=== PATIENT | female | born 1970 | race Caucasian/White ===

== ENCOUNTER → 2016-12-11 | Outpatient (CLI) | payer OTHER ==
--- NOTE | 2016-12-12 07:06 | US ---
EXAMINATION TYPE: US carotid duplex BILAT DATE OF EXAM: 12/11/2016 COMPARISON: NONE CLINICAL HISTORY: G43.009 Migraine w/o aura, patient states left sided numbness, aphasia. EXAM MEASUREMENTS: RIGHT: Peak Systolic Velocity (PSV) cm/sec ----- Right CCA: 91.4 ----- Right ICA: 93.2 ----- Right ECA: 97.3 ICA/CCA ratio: 1.0 RIGHT: End Diastole cm/sec ----- Right CCA: 28.9 ----- Right ICA: 47.9 ----- Right ECA: 15.3 LEFT: Peak Systolic Velocity (PSV) cm/sec ----- Left CCA: 94.7 ----- Left ICA: 96.0 ----- Left ECA: 89.4 ICA/CCA ratio: 1.0 LEFT: End Diastole cm/sec ----- Left CCA: 35.2 ----- Left ICA: 24.6 ----- Left ECA: 18.0 VERTEBRALS (direction of flow): Right Vertebral: Antegrade Left Vertebral: Antegrade No evident plaque, No significant velocity elevations IMPRESSION: No evidence for hemodynamically significant stenosis within either carotid system. .
== END | disposition home or self-care (01) ==
LOC: RADUSWWP 15:36
PROVIDERS: ATTEND Psychiatry & Neurology Neurology
DX: G43.009 Migraine without aura, not intractable, without status migrainosus (principal)
CPT/HCPCS: 93880

== ENCOUNTER → 2016-12-19 | Outpatient (CLI) | payer OTHER ==
--- NOTE | 2016-12-19 21:06 | MR ---
EXAMINATION TYPE: MR angio head wo con DATE OF EXAM: 12/19/2016 COMPARISON: MRA/MRI brain February 07, 2015. HISTORY: Neck pain, pressure RT side of face. Migraine headaches per order. TECHNIQUE: Time of flight images focusing on the [place] were performed without contrast.. 2-D and 3-D postprocessing imaging is performed. FINDINGS: There is redemonstration of dominant left vertebral artery. Vertebral arteries are patent t o basilar junction. There is slightly tortuous course of the right P1 segment redemonstrated with pat ent right-sided posterior communicating artery identified. There is hypoplastic left-sided posterior communicating artery. No significant stenosis or aneurysmal change is seen. Images of the anterior circulation show no significant focal stenosis or aneurysmal change. There is small caliber but patent anterior communicating arteries seen best on image 59 series 301. IMPRESSION: No significant focal stenosis or aneurysmal change at level of the [place]. No s ignificant change from prior.
--- NOTE | 2016-12-19 21:10 | MR ---
MRI CERVICAL SPINE: CLINICAL HISTORY: Migraine headaches and extremity paresthesias per order. Headaches with left-sided facial and arm numbness per patient. TECHNIQUE: Multiplanar, multisequence imaging of the cervical spine is performed without IV contrast. COMPARISON: Cervical spine x-ray May 31, 2015 FINDINGS: Sagittal images of the cervical spine show the craniocervical junction to appear within nor mal limits. The cervical and upper thoracic spinal cord is normal in course, caliber, and signal. V ertebral alignment is slightly straightened. The vertebral body and intravertebral disk heights are normal. No large posterior disc herniations are seen on sagittal images. The bone marrow signal inte nsity is within normal limits. No significant spurring is present. Axial images show the C2-C3 and C3-C4 levels to appear within normal limits. Axial images at C4-C5 level show tiny central disc protrusion minimally effacing anterior thecal sac on axial image 29, bilateral neural foramina are patent. Axial images at C5-C6 level show broad-based left paracentral disc protrusion mildly effacing anterio r thecal sac and axial image 22, bilateral neural foramina are patent. Axial images at C6-C7 and C7-T1 levels are felt within normal limits. There is 4 mm T2 hyperintense probable cystic nodule posterior right thyroid lobe on axial image 10. IMPRESSION: Slight straightening of cervical spine with mild degenerative changes midcervical spine s een as detailed above. No significant finding is seen to account for patient's left-sided radiculopat hy type symptoms however.
== END ==
LOC: RADMRIMAIN 17:10
PROVIDERS: ATTEND Psychiatry & Neurology Neurology
DX: G43.009 Migraine without aura, not intractable, without status migrainosus (principal); M47.812 Spondylosis without myelopathy or radiculopathy, cervical region
CPT/HCPCS: 70544; 72141

== ENCOUNTER 2019-05-07 09:15 | Inpatient (IN) | payer OTHER ==
[2019-05-07 11:00] LABS: Basophils % (A) 1 %; Eosinophils % (A) 1 %; HCT 46.6 % (34.0-46.0); HGB 15.4 gm/dL (11.4-16.0); Lymphocytes # (A) 1.5 k/uL (1.0-4.8); Lymphocytes % (A) 33 %; MCHC 33.1 g/dL (31.0-37.0); MCV 90.5 fL (80.0-100.0); Mean Platelet Volume 8.5; Monocytes # (A) 0.3 k/uL (0-1.0); Monocytes % (A) 6 %; Neutrophils # (A) 2.7 k/uL (1.3-7.7); Neutrophils % (A) 58 %; Platelet Count 151 k/uL (150-450); RBC 5.15 m/uL (3.80-5.40); RDW 13.4 % (11.5-15.5); WBC 4.6 k/uL (3.8-10.6)
[2019-05-07 11:25] LABS: Albumin 4.1 g/dL (3.5-5.0); Calcium 8.3 mg/dL (8.4-10.2); Potassium 3.7 mmol/L (3.5-5.1); Total Bilirubin 0.9 mg/dL (0.2-1.3); Total Protein 7.4 g/dL (6.3-8.2)
[2019-05-07] MEDS: IPRATROPIUM-ALBUTEROL 3 ML NEB INHALATION SCH ×3 (13:11→21:14)
[2019-05-07] MEDS: SODIUM CHLORIDE 0.9% 1,000 ML IV SCH ×2 (14:22→20:15)
[2019-05-07] MEDS: ONDANSETRON 4 MG/2 ML VIAL IVP PRN (14:27)
[2019-05-07] MEDS: methylPREDNISolone SOD SUCCI 125 MG/2 ML VIAL IV SCH (14:32)
--- NOTE | 2019-05-07 19:55 | XR ---
EXAMINATION: XR chest 2V DATE AND TIME: 05/07/2019 5:38 PM CLINICAL INDICATION: PHH; asthma TECHNIQUE: Departmental protocol COMPARISON: 10/24/2015 FINDINGS: There is partial opacification of the posterior right lower lobe, suggesting developing bronchopneumo mik. Otherwise, the lungs are well-expanded and clear. The pleural spaces are negative. The cardiac silhouette is not enlarged. The remainder of the mediastinal silhouette is unremarkable. The skeletal structures and soft tissues are negative for acute findings. IMPRESSION: Suspect developing right lower lobe bronchopneumonia; would suggest 6-9 week follow-up PA and lateral chest regressed to prove resolution.
[2019-05-08] MEDS: IPRATROPIUM-ALBUTEROL 3 ML NEB INHALATION SCH ×4 (07:25→21:07)
[2019-05-08] MEDS: methylPREDNISolone SOD SUCCI 125 MG/2 ML VIAL IV SCH ×2 (08:35)
[2019-05-08] MEDS: TROKENDI XR PO SCH (08:40)
[2019-05-08] MEDS ORDERED: TOPIRAMATE 100 MG TAB PO SCH (09:00)
[2019-05-08] MEDS ORDERED: FAMOTIDINE 20 MG/2 ML VIAL IV SCH (09:00)
--- NOTE | 2019-05-08 09:00 | P.HPIM ---
History of Present Illness On-call hospitalist covering for Dr. Song on Saturday and over the weekend This is a pleasant 48 years old female with past medical history of migraine, alert, and neck pain with cervical radiculopathy. Patient presents because of respiratory symptoms. She went to [facility] emergency room at [facility] and they diagnosed her with pneumonia and they discharge on oral antibiotics and ask her to come back if she got worse, next day she went again to the emergency room with AV computed tomography scan of the chest and they told her she does not have pneumonia and they stopped her antibiotics. However she gradually got worse to the degree that she called her PCP Dr. Snog we'll admitted her to [facility]. Patient is complaining of some dyspnea and cough with no phlegm. No chest pain. She feels generally weak. She has some nausea and vomiting, last time she vomited about 2 days ago, yesterday she had loose bowel movement. However she denies abdominal pain, no headache, no weakness or abnormal sens ation in the extremities also patient has been having amenorrhea for all year and just last that she started having vaginal bleeding again Vitas looks stable, blood pressure 106/70, pulse 88/58 on admission. Labs showing unremarkable CBC, BMP, liver enzymes are mildly elevated. AST is 83 and ALT 82. Bilirubin is normal. Chest x-ray showing right lower lobe pneumonia. Midline has been ordered by Dr. Song and she was started on Rocephin and Zithromax as well as Solu-Medrol 60 mg, also she was started on normal sinus 75 mL/h Review of Systems CONSTITUTIONAL: No fever, no malaise, no fatigue. HEENT: No recent visual problems or hearing problems. Denied any sore throat. CARDIOVASCULAR: No orthopnea, PND, no palpitations, no syncope. PULMONARY: no hemoptysis. GASTROINTESTINAL: No diarrhea, no nausea, no vomiting, no abdominal pain. Normoactive bowel sounds. NEUROLOGICAL: No headaches, no weakness, no numbness. HEMATOLOGICAL: Denies any bleeding or petechiae. GENITOURINARY: Denies any burning micturition, frequency, or urgency. MUSCULOSKELETAL/RHEUMATOLOGICAL: Denies any joint pain, swelling, or any muscle pain. ENDOCRINE: Denies any polyuria or polydipsia. Past Medical History Past Medical History: No Reported History History of Any Multi-Drug Resistant Organisms: None Reported Past Surgical History: No Surgical Hx Reported Past Anesthesia/Blood Transfusion Reactions: No Reported Reaction Past Psychological History: ADD/ADHD Smoking Status: Never smoker Past Alcohol Use History: Occasional Past Drug Use History: None Reported - Past Family History Mother Family Medical History: No Reported History Father Family Medical History: Coronary Artery Disease (CAD), Diabetes Mellitus Additional Family Medical History / Comment(s): colorectal cancer Medications and Allergies Home Medications Medication Instructions Recorded Confirmed Type Topiramate [Trokendi Xr] 100 mg PO DAILY 05/07/19 05/07/19 History Allergies Allergy/AdvReac Type Severity Reaction Status Date / Time shellfish derived [Shellfish] Allergy Anaphylaxis Verified 10/24/15 10:19 Physical Exam Vitals: Vital Signs Temp Pulse Pulse Resp BP Pulse Ox 05/08/19 07:40 68 05/08/19 05:13 97.9 F 53 L 18 106/70 92 L 05/07/19 21:25 65 16 05/07/19 21:14 64 16 05/07/19 20:14 98.1 F 79 18 99/63 94 L 05/07/19 17:09 84 05/07/19 16:53 84 05/07/19 13:29 87 05/07/19 13:14 84 05/07/19 12:50 98.7 F 70 15 88/58 96 05/07/19 10:14 98.6 F 78 15 123/83 92 L Intake and Output 05/07/19 05/08/19 05/08/19 22:59 06:59 14:59 Intake Total 540 100 Balance 540 100 Intake: Oral 540 100 Other: Voiding Method Toilet # Voids 1 2 -GENERAL: The patient is alert and oriented x3, not in any acute distress. Generally weak and malaise HEENT: Pupils are round and equally reacting to light. EOMI. No scleral icterus. No conjunctival pallor. Normocephalic, atraumatic. No pharyngeal erythema. No thyromegaly. CARDIOVASCULAR: S1 and S2 present. No murmurs, rubs, or gallops. PULMONARY: Chest is clear to auscultation, no wheezing or crackles. ABDOMEN: Soft, nontender, nondistended, normoactive bowel sounds. No palpable organomegaly. MUSCULOSKELETAL: No joint swelling or deformity. EXTREMITIES: No cyanosis, clubbing, or pedal edema. NEUROLOGICAL: Gross neurological examination did not reveal any focal deficits. SKIN: No rashes. No petechiae Results CBC & Chem 7: 05/07/19 10:32 05/07/19 10:32 Labs: Abnormal Lab Results - Last 24 Hours (Table) 05/07/19 05/07/19 Range/Units 10:32 10:32 Hct 46.6 H (34.0-46.0) % Carbon Dioxide 21 L (22-30) mmol/L Calcium 8.3 L (8.4-10.2) mg/dL AST 83 H (14-36) U/L ALT 82 H (4-34) U/L Thrombosis Risk Factor Assmnt - Choose All That Apply Each Factor Represents 1 point: Age 41-60 years Thrombosis Risk Factor Assessment Total Risk Factor Score: 1 Thrombosis Risk Factor Assessment Level: Low Risk Assessment and Plan Assessment: Right lower lobe pneumonia Possible gastroenteritis, Mostly reactive to pneumonia Vaginal bleeding of one-day duration after 1 year of vitamin Ti[place] Migraine History of vertigo History of neck pain and radiculopathy Plan: This is a pleasant 48 years old female who presents with pneumonia, and vaginal bleeding. Continue with antibiotics. Hold steroids as patient is not a smoker and has no history of COPD and there is no wheezing on lung exam. Follow-up sputum culture, blood culture. Also check a test and ask for [facility] consult Labs and medication were reviewed.. Continue same treatment. Continue with symptomatic treatment. Resume home medication. Monitor lytes and vitals. DVT and GI prophylaxis. Further recommendations of the clinical course of the patient DVT prophylaxis: Subcutaneous heparin GI Prophylaxis: Pepcid Prognosis is guarded
[2019-05-08 09:28] LABS: Basophils % (A) 1 %; Eosinophils % (A) 1 %; HCT 44.5 % (34.0-46.0); HGB 15.2 gm/dL (11.4-16.0); Lymphocytes # (A) 0.9 k/uL (1.0-4.8); Lymphocytes % (A) 26 %; MCH 31.1 pg (25.0-35.0); MCV 91.5 fL (80.0-100.0); Mean Platelet Volume 8.3; Monocytes # (A) 0.1 k/uL (0-1.0); Monocytes % (A) 4 %; Neutrophils # (A) 2.3 k/uL (1.3-7.7); Neutrophils % (A) 66 %; Platelet Count 160 k/uL (150-450); RBC 4.87 m/uL (3.80-5.40); RDW 13.3 % (11.5-15.5); WBC 3.4 k/uL (3.8-10.6)
[2019-05-08] MEDS: AZITHROMYCIN 500 MG in SODIUM CHLORIDE 0.9% 250 ML IVPB SCH ×2 (09:47→11:34)
[2019-05-08] MEDS: HEPARIN SODIUM,PORCINE 5,000 UNIT/ML 1 ML VIAL SQ SCH ×2 (09:47→20:58)
[2019-05-08] MEDS: AZITHROMYCIN 500 MG TAB PO SCH (11:33)
[2019-05-08] MEDS: SODIUM CHLORIDE 0.9% 1,000 ML IV SCH (14:24)
[2019-05-08] MEDS: ONDANSETRON 4 MG/2 ML VIAL IVP PRN (16:39)
--- NOTE | 2019-05-08 17:59 | P.OBCN ---
History of Present Illness Consult date: 05/08/19 Reason for consult: other (Vaginal bleeding) Chief complaint: Vaginal bleeding History of present illness: This is a 48-year-old 2 para 2001 woman who presented with cough, congestion, nausea, abdominal pain and diarrhea. She was admitted for treatment of upper respiratory tract infection possible asthma exacerbation. She also noted that she started her period. Her menses have been irregular over the last 2-3 years and her last normal period was approximately 10-12 months ago. She denies vasomotor symptoms but does have some cyclic breast tenderness and cramping consistent with PMS. Her gynecologic history is unremarkable however she does admit to not having her routine B[employer] exam for approximately 5-10 years. She had a history of abnormal Pap smears as a young woman but these were normal after cryotherapy in the distant past. She denies hematuria, vaginal discharge, pelvic pain, dyspareunia, vulvar or vaginal lesions. Her bleeding is scant and only when she wipes going to the bathroom. Review of Systems Constitutional: Reports chills, Reports fatigue, Reports fever Breasts: absent: masses, nipple discharge, pain Cardiovascular: Reports dyspnea on exertion, Reports shortness of breath, Denies chest pain, Denies irregular heart beat Respiratory: Reports congestion, Reports cough Gastrointestinal: Reports abdominal pain, Reports diarrhea, Reports nausea, Denies BRBPR, Denies change in bowel habits, Denies melena, Denies vomiting Genitourinary: Reports stress incontinence, Denies dyspareunia, Denies dysuria, Denies flank pain, Denies hematuria Menstruation: Reports as per HPI, Reports currently menstrual, Reports menses variable Musculoskeletal: Reports low back pain Integumentary: Denies rash Neurological: Denies headaches Psychiatric: Denies anxiety, Denies depression Hematologic/Lymphatic: Denies easy bleeding, Denies easy bruising Past Medical History Past Medical History: No Reported History Additional Past Medical History / Comment(s): 2 History of Any Multi-Drug Resistant Organisms: None Reported Past Surgical History: No Surgical Hx Reported Past Anesthesia/Blood Transfusion Reactions: No Reported Reaction Past Psychological History: ADD/ADHD Smoking Status: Never smoker Past Alcohol Use History: Occasional Past Drug Use History: None Reported - Past Family History Mother Family Medical History: No Reported History Father Family Medical History: Coronary Artery Disease (CAD), Diabetes Mellitus Additional Family Medical History / Comment(s): colorectal cancer Medications and Allergies Home Medications Medication Instructions Recorded Confirmed Type Topiramate [Trokendi Xr] 100 mg PO DAILY 05/07/19 05/07/19 History Allergies Allergy/AdvReac Type Severity Reaction Status Date / Time shellfish derived [Shellfish] Allergy Anaphylaxis Verified 10/24/15 10:19 Exam Vital Signs Temp Pulse Pulse Resp BP Pulse Ox 05/08/19 16:54 80 05/08/19 16:42 70 05/08/19 13:06 98.5 F 65 16 105/69 96 05/08/19 11:53 88 05/08/19 11:42 84 05/08/19 07:40 68 05/08/19 05:13 97.9 F 53 L 18 106/70 92 L 05/07/19 21:25 65 16 05/07/19 21:14 64 16 05/07/19 20:14 98.1 F 79 18 99/63 94 L Intake and Output 05/08/19 05/08/19 05/08/19 06:59 14:59 22:59 Intake Total 100 Balance 100 Intake: Oral 100 Other: # Voids 2 1 This is a pleasant but somewhat dyspneic female appearing her stated age. HEENT exam is unremarkable for any palpable lymphadenopathy or thyromegaly. She has cough with deep inspiration however no wheezing. Her heart is a regular rate and rhythm. Her abdomen is obese, soft and nontender wi th no rebound, no guarding and no flank pain. No abdominal scarring. Internal pelvic examination is deferred however examination external genitalia reveals no active vaginal bleeding on pad. Lower extremities show trace edema. She is alert and oriented and grossly neurologically intact. Results Result Diagrams: 05/08/19 09:05 05/07/19 10:32 Abnormal Lab Results - Last 24 Hours (Table) 05/08/19 Range/Units 09:05 WBC 3.4 L (3.8-10.6) k/uL Lymphocytes # 0.9 L (1.0-4.8) k/uL Microbiology - Last 24 Hours (Table) 05/07/19 10:32 Blood Culture - Preliminary Blood No Growth after 24 hours Chest x-ray: report reviewed Assessment and Plan (1) Menopausal and perimenopausal disorder Current Visit: Yes Status: Acute Code(s): N95.9 - UNSPECIFIED MENOPAUSAL AND PERIMENOPAUSAL DISORDER SNOMED Code(s): 931244323 (2) Pneumonia Current Visit: Yes Status: Acute Code(s): J18.9 - PNEUMONIA, UNSPECIFIED ORGANISM SNOMED Code(s): 221899416 (3) Nausea Current Visit: No Status: Acute Code(s): R11.0 - NAUSEA SNOMED Code(s): 557495035 (4) Diarrhea Current Visit: Yes Status: Acute Code(s): R19.7 - DIARRHEA, UNSPECIFIED SNOMED Code(s): 70632213 Plan: This is a 48-year-old 2 para 2 woman with perimenopausal bleeding. She does not have acute vaginal hemorrhage. Her hemoglobin is greater than 15. She has scant vaginal bleeding on exam today. I have recommended she follow up with me in the office for routine gynecologic evaluation including pelvic exam, cervical cancer screening, breast cancer screening etc. We briefly discussed anticipated symptoms and bleeding profile with perimenopause and menopause at age 48. All questions were answered. Thank you for introducing me to this kind woman and I am happy to see her in follow-up. Please see to contact me should you have any further questions.
[2019-05-08] MEDS: HYDROcodone/APAP 5-325MG 1 EACH TAB PO PRN (19:18)
[2019-05-08] MEDS: FAMOTIDINE 20 MG TAB PO SCH (20:58)
[2019-05-09] MEDS: HYDROcodone/APAP 5-325MG 1 EACH TAB PO PRN ×2 (03:08→11:23)
[2019-05-09] MEDS: ONDANSETRON 4 MG/2 ML VIAL IVP PRN ×2 (03:11→21:14)
[2019-05-09 07:54] LABS: Basophils # (A) 0.1 k/uL (0-0.2); Basophils % (A) 1 %; Eosinophils % (A) 1 %; HCT 39.9 % (34.0-46.0); HGB 13.7 gm/dL (11.4-16.0); Lymphocytes # (A) 1.7 k/uL (1.0-4.8); Lymphocytes % (A) 23 %; MCH 30.9 pg (25.0-35.0); MCHC 34.3 g/dL (31.0-37.0); MCV 90.1 fL (80.0-100.0); Mean Platelet Volume 8.5; Monocytes # (A) 0.3 k/uL (0-1.0); Monocytes % (A) 4 %; Neutrophils # (A) 5.2 k/uL (1.3-7.7); Neutrophils % (A) 71 %; Platelet Count 146 k/uL (150-450); RBC 4.43 m/uL (3.80-5.40); RDW 13.4 % (11.5-15.5); WBC 7.3 k/uL (3.8-10.6)
[2019-05-09] MEDS: FAMOTIDINE 20 MG TAB PO SCH ×2 (08:37→21:10)
[2019-05-09] MEDS: HEPARIN SODIUM,PORCINE 5,000 UNIT/ML 1 ML VIAL SQ SCH ×2 (08:37→21:10)
[2019-05-09] MEDS: AZITHROMYCIN 500 MG TAB PO SCH (08:37)
[2019-05-09 08:38] LABS: African American GFR (CKD) >90 (>60 ml/min/1.73 sqM); Anion Gap 8 mmol/L; Blood Urea Nitrogen 15 mg/dL (7-17); Carbon Dioxide 21 mmol/L (22-30); Chloride 111 mmol/L (98-107); Glucose 90 mg/dL (74-99); Non-African American GFR(CKD) >90 (>60 ml/min/1.73 sqM); Sodium 140 mmol/L (137-145)
[2019-05-09] MEDS: TROKENDI XR PO SCH (08:39)
[2019-05-09] MEDS ORDERED: CEFDINIR 300 MG CAP PO SCH (09:00)
[2019-05-09] MEDS: IPRATROPIUM-ALBUTEROL 3 ML NEB INHALATION SCH ×4 (09:01→19:58)
[2019-05-09 10:04] LABS: Creatine Kinase 63 U/L (30-135)
[2019-05-09] MEDS: SODIUM CHLORIDE 0.9% 1,000 ML IV SCH ×2 (10:11→23:21)
[2019-05-09 10:17] LABS: Creatine Kinase MB 0.7 ng/mL (0.0-2.4); Troponin I <0.012 ng/mL (0.000-0.034)
--- NOTE | 2019-05-09 11:52 | XR ---
EXAMINATION TYPE: XR chest 2V DATE OF EXAM: 05/09/2019 HISTORY: eval asthma. REFERENCE: Previous study dated 05/07/2019. FINDINGS: There is a mild infiltrate in the right lower lobe. Left lung is clear. Pleural space are c lear. The heart is not enlarged. IMPRESSION: MINIMAL RIGHT LOWER LOBE INFILTRATE.
[2019-05-09] MEDS ORDERED: guaiFENesin-DM 100-10MG/5ML 10 ML CUP PO PRN (13:27)
--- NOTE | 2019-05-09 13:42 | P.PN ---
Subjective On-call hospitalist covering for Dr. Song on Saturday and over the weekend This is a pleasant 48 years old female with past medical history of migraine, alert, and neck pain with cervical radiculopathy. Patient presents because of respiratory symptoms. She went to [facility] emergency room at [facility] and they diagnosed her with pneumonia and they discharge on oral antibiotics and ask her to come back if she got worse, next day she went again to the emergency room with AV computed tomography scan of the chest and they told her she does not have pneumonia and they stopped her antibiotics. However she gradually got worse to the degree that she called her PCP Dr. Song we'll admitted her to [facility]. Patient is complaining of some dyspnea and cough with no phlegm. No chest pain. She feels generally weak. She has some nausea and vomiting, last time she vomited about 2 days ago, yesterday she had loose bowel movement. However she denies abdominal pain, no headache, no weakness or abnormal sensation in the extremities also patient has been having amenorrhea for all year and just last that she started having vaginal bleeding again Vitas looks stable, blood pressure 106/70, pulse 88/58 on admission. Labs s howing unremarkable CBC, BMP, liver enzymes are mildly elevated. AST is 83 and ALT 82. Bilirubin is normal. Chest x-ray showing right lower lobe pneumonia. Midline has been ordered by Dr. Song and she was started on Rocephin and Zithromax as well as Solu-Medrol 60 mg, also she was started on normal sinus 75 mL/h 05/09/2019 Patient still complains of dyspnea especially on exertion, she has pleuritic- like chest pain in the right lower lung increased with deep breathing and inspiration. She has significant cough. She is saturating 95% on room air, she is afebrile. She is not tachycardic. WBC increased from 3.4 up to 7.3K. BMP is unremarkable with creatinine 0.6. Troponin is negative less than 0.012. test is negative. She remains on Zithromax and Rocephin, repeat chest x-ray shows minimal infiltrates in the right lower lung. She is on normal saline at 50 mL per hour which is increased to 100 mL per hour. MUD WORKER service input is appreciated, they recommended outpatient follow-up for minimum bleeding Review of Systems CONSTITUTIONAL: No fever, no malaise, no fatigue. HEENT: No recent visual problems or hearing problems. Denied any sore throat. CARDIOVASCULAR: No orthopnea, PND, no palpitations, no syncope. PULMONARY: no hemoptysis. GASTROINTESTINAL: No diarrhea, no nausea, no vomiting, no abdominal pain. Normoactive bowel sounds. NEUROLOGICAL: No headaches, no weakness, no numbness. HEMATOLOGICAL: Denies any bleeding or petechiae. GENITOURINARY: Denies any burning micturition, frequency, or urgency. MUSCULOSKELETAL/RHEUMATOLOGICAL: Denies any joint pain, swelling, or any muscle pain. ENDOCRINE: Denies any polyuria or polydipsia. Active Medications Generic Name Dose Route Start Last Admin Trade Name Freq PRN Reason Stop Dose Admin Hydrocodone Bitart/Acetaminophen 1 each 05/07/19 10:07 05/09/19 11:23 [place] 5-325 PO 1 each Q6HR PRN Administration Pain Albuterol/Ipratropium 3 ml 05/07/19 12:00 05/09/19 12:15 Duoneb 0.5 Mg-3 Mg/3 Ml Soln INHALATION 3 ml RT-QID CALIXTO Administration Azithromycin 500 mg 05/08/19 11:00 05/09/19 08:37 Zithromax PO 500 mg DAILY CALIXTO Administration Famotidine 20 mg 05/08/19 21:00 05/09/19 08:37 Pepcid PO 20 mg Q12HR CALIXTO Administration Guaifenesin/Dextromethorphan 10 ml 05/09/19 13:27 Robitussin Dm PO Q6H PRN Cough Heparin Sodium (Porcine) 5,000 unit 05/08/19 09:00 05/09/19 08:37 Heparin SQ 5,000 unit Q12HR CALIXTO Administration Sodium Chloride 1,000 mls @ 100 mls/hr 05/07/19 10:15 05/09/19 10:11 Saline 0.9% IV Not Given .Q10H CALIXTO Ceftriaxone Sodium 1 gm/ 50 mls @ 100 mls/hr 05/09/19 09:00 05/09/19 10:50 Sodium Chloride IVPB 100 mls/hr Q24HR CALIXTO Administration Trokendi Xr 1 each 05/08/19 09:00 05/09/19 08:39 PO 1 each DAILY CALIXTO Administration Ondansetron HCl 4 mg 05/07/19 14:22 05/09/19 03:11 Zofran IVP 4 mg Q6HR PRN Administration Nausea And Vomiting Objective - Vital Signs Vital signs: Vital Signs Temp 97.4 F L 05/09/19 05:55 Pulse 74 05/09/19 12:25 Resp 16 05/09/19 05:55 BP 99/65 05/09/19 05:55 Pulse Ox 95 05/09/19 05:55 Intake & Output 05/08/19 05/09/19 05/09/19 18:59 06:59 18:59 Other: Voiding Method Toilet # Voids 1 1 - Exam GENERAL: The patient is alert and oriented x3, not in any acute distress. Well developed, well nourished. HEENT: Pupils are round and equally reacting to light. EOMI. No scleral icterus. No conjunctival pallor. Normocephalic, atraumatic. No pharyngeal erythema. No thyromegaly. CARDIOVASCULAR: S1 and S2 present. No murmurs, rubs, or gallops. PULMONARY: Chest is clear to auscultation, no wheezing or crackles. ABDOMEN: Soft, nontender, nondistended, normoactive bowel sounds. No palpable organomegaly. MUSCULOSKELETAL: No joint swelling or deformity. EXTREMITIES: No cyanosis, clubbing, or pedal edema. NEUROLOGICAL: Gross neurological examination did not reveal any focal deficits. SKIN: No rashes. no petechiae. - Labs CBC & Chem 7: 05/09/19 07:22 05/09/19 07:22 Labs: Abnormal Lab Results - Last 24 Hours (Table) 05/09/19 05/09/19 Range/Units 07:22 07:22 Plt Count 146 L (150-450) k/uL Chloride 111 H (98-107) mmol/L Carbon Dioxide 21 L (22-30) mmol/L Calcium 8.0 L (8.4-10.2) mg/dL Microbiology - Last 24 Hours (Table) 05/07/19 10:32 Blood Culture - Preliminary Blood No Growth after 48 hours Assessment and Plan Assessment: Right lower lobe pneumonia Possible gastroenteritis, Mostly reactive to pneumonia Vaginal bleeding of one-day duration after 1 year of vitamin [place] Migraine History of vertigo History of neck pain and radiculopathy Plan: This is a pleasant 48 years old female who presents with pneumonia, and vaginal bleeding. Continue with antibiotics. Hold steroids as patient is not a smoker and has no history of COPD and there is no wheezing on lung exam. Follow-up sputum culture, blood culture. Consult pulmonary service. Labs and medication were reviewed.. Continue same treatment. Continue with symptomatic treatment. Resume home medication. Monitor lytes and vitals. DVT and GI prophylaxis. Further recommendations of the clinical course of the patient DVT prophylaxis: Subcutaneous heparin GI Prophylaxis: Pepcid Prognosis is guarded
--- NOTE | 2019-05-09 14:17 | P.CNPUL ---
History of Present Illness Consult date: 05/09/19 Requesting physician: Reinier E Eden Reason for consult: dyspnea Chief complaint: Shortness of breath, cough, congestion History of present illness: This is a very pleasant 48-year-old female patient who follows with Dr. Song as her primary care physician. She is a history of migraines, neck pain with cervical radiculopathy, obesity and ADD. She is a lifelong nonsmoker. No history of asthma or emphysema. No inhalers in the past. 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 Approximate 1 week ago she started sneezing felt a tickle in her throat and developed a fever later that night. The next day she is a bit worse this was last Saturday and she was seen in the [facility] emergency room. She was treated with Augmentin. By Saturday she was feeling again worse and had some vomiting and diarrhea she states her flu screen was negative there. They did end up doing a CT angiogram that ruled out pulmonary emboli. She stopped the Augmentin on her own. She progressively got worse and presented here on 05/07/[address] Song's office. She has been slow to progress. Complaints of continued cough and congestion where consulted today for the same. She is seen on the regular medical floor. She is currently resting comfortably in bed. Awake and alert in no acute distress. She states she does get quite short of breath on minimal exertion to the bathroom and back. She is maintaining O2 saturations in the 90s on room air. His x-ray reveals a right lower lobe infiltrate. White count 7.3. Hemoglobin 13.7. Sodium 140. Potassium 4.0. Creatinine 0.68. Blood and negative 1. Influenza screen was negative. HCG was negative. Blood culture reveals no growth. He is currently on bronchodilators, Robitussin, ceftriaxone and azithromycin. Review of Systems REVIEW OF SYSTEMS: CONSTITUTIONAL: Denies any recent significant weight loss or weight gain. EYES: Denies change in vision. EARS, NOSE, MOUTH, THROAT: Denies headaches, denies sore throat. CARDIOVASCULAR: Denies chest pain, palpitations or syncopal episodes. RESPIRATORY: Positive for shortness of breath, cough, congestion no hemoptysis. GASTROINTESTINAL: Acid for nausea and diarrhea GENITOURINARY: Denies hematuria, denies infections. MUSKULOSKELETAL: Denies pain, denies swelling. INTEGUMENTARY: Denies rash, denies eczema. NEUROLOGICAL: Denies recent memory loss, no recent seizure activity. PSYCHIATRIC: Denies anxiety, denies depression. HEMATOLOGIC/LYMPHATIC: Denies anemia, denies enlarged lymph nodes. Past Medical History Past Medical History: No Reported History Additional Past Medical History / Comment(s): 2 History of Any Multi-Drug Resistant Organisms: None Reported Past Surgical History: No Surgical Hx Reported Past Anesthesia/Blood Transfusion Reactions: No Reported Reaction Past Psychological History: ADD/ADHD Smoking Status: Never smoker Past Alcohol Use History: Occasional Past Drug Use History: None Reported - Past Family History Mother Family Medical History: No Reported History Father Family Medical History: Coronary Artery Disease (CAD), Diabetes Mellitus Additional Family Medical History / Comment(s): colorectal cancer Medications and Allergies Home Medications Medication Instructions Recorded Confirmed Type Topiramate [Trokendi Xr] 100 mg PO DAILY 05/07/19 05/07/19 History Allergies Allergy/AdvReac Type Severity Reaction Status Date / Time shellfish derived [Shellfish] Allergy Anaphylaxis Verified 10/24/15 10:19 Physical Exam Vitals: Vital Signs Temp Pulse Pulse Resp BP Pulse Ox 05/09/19 12:25 74 05/09/19 12:16 72 05/09/19 09:01 84 05/09/19 05:55 97.4 F L 59 L 16 99/65 95 05/08/19 21:28 97.6 F 75 18 105/67 93 L 05/08/19 21:18 80 05/08/19 21:07 76 05/08/19 16:54 80 05/08/19 16:42 70 Intake and Output 05/08/19 05/09/19 05/09/19 22:59 06:59 14:59 Other: Voiding Method Toilet # Voids 2 1 GENERAL EXAM: Alert, obese pleasant 48-year-old female patient, on room air comfortable in no apparent distress. HEAD: Normocephalic. EYES: Normal reaction of pupils, equal size. NOSE: Clear with pink turbinates. THROAT: No erythema or exudates. NECK: No masses, no JVD. CHEST: No chest wall deformity. LUNGS: Equal air entry with faint crackles in the right posterior base CVS: S1 and S2 normal with no audible murmur, regular rhythm. ABDOMEN: No hepatosplenomegaly, normal bowel sounds, no guarding or rigidity. SPINE: No scoliosis or deformity SKIN: No rashes CENTRAL NERVOUS SYSTEM: No focal deficits, tone is normal in all 4 extremities. EXTREMITIES: There is no peripheral edema. No clubbing, no cyanosis. Peripheral pulses are intact. Results - Laboratory Findings CBC and BMP: 05/09/19 07:22 05/09/19 07:22 Abnormal lab findings: Abnormal Labs 05/07/19 05/07/19 05/08/19 10:32 10:32 09:05 WBC 3.4 L Hct 46.6 H Plt Count Lymphocytes # 0.9 L Chloride Carbon Dioxide 21 L Calcium 8.3 L AST 83 H ALT 82 H 05/09/19 05/09/19 07:22 07:22 WBC Hct Plt Count 146 L Lymphocytes # Chloride 111 H Carbon Dioxide 21 L Calcium 8.0 L AST ALT - Diagnostic Findings Chest x-ray: image reviewed (Right lower lobe infiltrate) Assessment and Plan Assessment: 1 Dyspnea with cough and congestion secondary to a right lower lobe infiltrate/community-acquired pneumonia, failed outpatient treatment, some postinfectious cough syndrome 2 Recently seen in a another emergency room and a CT angiogram ruled out pulmonary emboli 3 Morbid obesity 4 Lifelong nonsmoker. 5 History of migraines 6 History of ADD Plan The patient was seen and evaluated by Dr. Brandt. Chest x-rays and labs reviewed. We'll continue the current treatment plan including ceftriaxone and azithromycin along with DuoNeb inhalations. Add IV Solu-Medrol. Heparin for DVT prophylaxis. Pepcid for GI prophylaxis. Increase her activity as tolerated. We'll continue to follow. I, the cosigning physician, performed a history & physical examination of the patient. Lungs sounds with crackles in the right posterior base. Maintaining good O2 saturations in the 90s on room air. I discussed the assessment and plan of care with my nurse practitioner, Shelia Metcalf. I attest to the above note as dictated by her. Time with Patient: Greater than 30
[2019-05-09] MEDS: methylPREDNISolone SOD SUCCI 40 MG/ML 1 ML VIAL IV SCH ×2 (15:44→23:20)
[2019-05-10 08:04] LABS: African American GFR (CKD) >90 (>60 ml/min/1.73 sqM); Anion Gap 9 mmol/L; Blood Urea Nitrogen 10 mg/dL (7-17); Calcium 8.2 mg/dL (8.4-10.2); Carbon Dioxide 19 mmol/L (22-30); Chloride 112 mmol/L (98-107); Glucose 113 mg/dL (74-99); Non-African American GFR(CKD) >90 (>60 ml/min/1.73 sqM); Sodium 140 mmol/L (137-145)
[2019-05-10 08:09] LABS: Potassium 4.3 mmol/L (3.5-5.1)
[2019-05-10] MEDS: methylPREDNISolone SOD SUCCI 40 MG/ML 1 ML VIAL IV SCH ×3 (09:27→23:29)
[2019-05-10] MEDS: FAMOTIDINE 20 MG TAB PO SCH ×2 (09:27→21:01)
[2019-05-10] MEDS: HEPARIN SODIUM,PORCINE 5,000 UNIT/ML 1 ML VIAL SQ SCH ×2 (09:27→21:01)
[2019-05-10] MEDS: AZITHROMYCIN 500 MG TAB PO SCH (09:27)
[2019-05-10] MEDS: TROKENDI XR PO SCH (09:29)
[2019-05-10] MEDS: IPRATROPIUM-ALBUTEROL 3 ML NEB INHALATION SCH ×4 (10:11→19:54)
[2019-05-10] MEDS: ONDANSETRON 4 MG/2 ML VIAL IVP PRN ×2 (11:40→17:35)
[2019-05-10] MEDS: HYDROcodone/APAP 5-325MG 1 EACH TAB PO PRN ×2 (11:40→17:35)
[2019-05-10] MEDS: guaiFENesin-DM 100-10MG/5ML 10 ML CUP PO SCH ×2 (14:11→21:00)
--- NOTE | 2019-05-10 15:52 | P.PN ---
Subjective Progress Note Date: 05/10/19 Principal diagnosis: Right lower lobe pneumonia This is a very pleasant 48-year-old female patient who follows with Dr. Song as her primary care physician. She is a history of migraines, neck pain with cervical radiculopathy, obesity and ADD. She is a lifelong nonsmoker. No history of asthma or emphysema. No inhalers in the past. 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 Approximate 1 week ago she started sneezing felt a tickle in her throat and developed a fever later that night. The next day she is a bit worse this was last Saturday and she was seen in the [facility] emergency room. She was treated with Augmentin. By Saturday she was feeling again worse and had some vomiting and diarrhea she states her flu screen was negative there. They did end up doing a CT angiogram that ruled out pulmonary emboli. She stopped the Augmentin on her own. She progressively got worse and presented here on 05/07/[address] Song's office. She has been slow to progress. Complaints of continued cough and congestion where consulted today for the same. She is seen on the regular medical floor. She is currently resting comfortably in bed. Awake and alert in no acute distress. She states she does get quite short of breath on minimal exertion to the bathroom and back. She is maintaining O2 saturations in the 90s on room air. His x-ray reveals a right lower lobe infiltrate. White count 7.3. Hemoglobin 13.7. Sodium 140. Potassium 4.0. Creatinine 0.68. Blood and negative 1. Influenza screen was negative. HCG was negative. Blood culture reveals no growth. He is currently on bronchodilators, Robitussin, ceftriaxone and azithromycin. The patient is seen today 05/10/2019 in follow-up on the regular medical floor. She is resting quite comfortably in bed. Awake and alert in no acute distress. Maintaining good O2 saturations in the 90s on room air. He's been afebrile. Continues with a loose nonproductive cough. No fever or chills. Blood culture reveals no growth. Sodium 140. Potassium 4.3. Bicarb 19. Creatinine 0.65. She is continued on DuoNeb inhalations, IV Solu-Medrol, antibiotics in the form of Omnicef and azithromycin. Objective - Vital Signs Vital signs: Vital Signs Temp 97.8 F 05/10/19 14:38 Pulse 68 05/10/19 15:39 Resp 16 05/10/19 14:38 BP 121/72 05/10/19 14:38 Pulse Ox 94 L 05/10/19 14:38 Intake & Output 05/09/19 05/10/19 05/10/19 18:59 06:59 18:59 Intake Total 300 540 Balance 300 540 Intake: Oral 300 540 Other: Voiding Method Toilet Toilet # Voids 1 4 2 - Exam GENERAL EXAM: Alert, obese pleasant 48-year-old female patient, on room air comfortable in no apparent distress. HEAD: Normocephalic. EYES: Normal reaction of pupils, equal size. NOSE: Clear with pink turbinates. THROAT: No erythema or exudates. NECK: No masses, no JVD. CHEST: No chest wall deformity. LUNGS: Equal air entry with faint crackles in the right posterior base CVS: S1 and S2 normal with no audible murmur, regular rhythm. ABDOMEN: No hepatosplenomegaly, normal bowel sounds, no guarding or rigidity. SPINE: No scoliosis or deformity SKIN: No rashes CENTRAL NERVOUS SYSTEM: No focal deficits, tone is normal in all 4 extremities. EXTREMITIES: There is no peripheral edema. No clubbing, no cyanosis. Peripheral pulses are intact. - Labs CBC & Chem 7: 05/09/19 07:22 05/10/19 07:33 Labs: Abnormal Lab Results - Last 24 Hours (Table) 05/10/19 Range/Units 07:33 Chloride 112 H (98-107) mmol/L Carbon Dioxide 19 L (22-30) mmol/L Glucose 113 H (74-99) mg/dL Calcium 8.2 L (8.4-10.2) mg/dL Microbiology - Last 24 Hours (Table) 05/07/19 10:32 Blood Culture - Preliminary Blood No Growth after 72 hours Assessment and Plan Assessment: 1 Dyspnea with cough and congestion secondary to a right lower lobe infiltrate/community-acquired pneumonia, failed outpatient treatment, some postinfectious cough syndrome 2 Recently seen in a another emergency room and a CT angiogram ruled out pulmonary emboli 3 Morbid obesity 4 Lifelong nonsmoker. 5 History of migraines 6 History of ADD Plan The patient was seen and evaluated by Dr. Brandt. We'll continue the current treatment plan. Probable discharge in the a.m. I, the cosigning physician, performed a history & physical examination of the patient. Lungs sounds with crackles in the right posterior base. Maintaining good O2 saturations in the 90s on room air. I discussed the assessment and plan of care with my nurse practitioner, Shelia Metcalf. I attest to the above note as dictated by her.
[2019-05-10] MEDS: SODIUM CHLORIDE 0.9% 1,000 ML IV SCH (17:54)
--- NOTE | 2019-05-10 22:08 | P.PN ---
Subjective On-call hospitalist covering for Dr. Song on Saturday and over the weekend This is a pleasant 48 years old female with past medical history of migraine, alert, and neck pain with cervical radiculopathy. Patient presents because of respiratory symptoms. She went to [facility] emergency room at [facility] and they diagnosed her with pneumonia and they discharge on oral antibiotics and ask her to come back if she got worse, next day she went again to the emergency room with AV computed tomography scan of the chest and they told her she does not have pneumonia and they stopped her antibiotics. However she gradually got worse to the degree that she called her PCP Dr. Song we'll admitted her to [facility]. Patient is complaining of some dyspnea and cough with no phlegm. No chest pain. She feels generally weak. She has some nausea and vomiting, last time she vomited about 2 days ago, yesterday she had loose bowel movement. However she denies abdominal pain, no headache, no weakness or abnormal sensation in the extremities also patient has been having amenorrhea for all year and just last that she started having vaginal bleeding again Vitas looks stable, blood pressure 106/70, pulse 88/58 on admission. Labs s howing unremarkable CBC, BMP, liver enzymes are mildly elevated. AST is 83 and ALT 82. Bilirubin is normal. Chest x-ray showing right lower lobe pneumonia. Midline has been ordered by Dr. Song and she was started on Rocephin and Zithromax as well as Solu-Medrol 60 mg, also she was started on normal sinus 75 mL/h 05/09/2019 Patient still complains of dyspnea especially on exertion, she has pleuritic- like chest pain in the right lower lung increased with deep breathing and inspiration. She has significant cough. She is saturating 95% on room air, she is afebrile. She is not tachycardic. WBC increased from 3.4 up to 7.3K. BMP is unremarkable with creatinine 0.6. Troponin is negative less than 0.012. test is negative. She remains on Zithromax and Rocephin, repeat chest x-ray shows minimal infiltrates in the right lower lung. She is on normal saline at 50 mL per hour which is increased to 100 mL per hour. [employer] service input is appreciated, they recommended outpatient follow-up for minimum bleeding 05/10/2019 Patient status slight improvement in her dyspnea but she still coughing. No chest pain. She feels a little bit better after starting her steroids, pulm onary team on the case. Switch Robitussin 2 scheduled dose because she was not taking it. Vitals stable. Labs are unremarkable. Objective - Vital Signs Vital signs: Vital Signs Temp 97.8 F 05/10/19 14:38 Pulse 70 05/10/19 14:38 Resp 16 05/10/19 14:38 BP 121/72 05/10/19 14:38 Pulse Ox 94 L 05/10/19 14:38 Intake & Output 05/09/19 05/10/19 05/10/19 18:59 06:59 18:59 Intake Total 300 540 Balance 300 540 Intake: Oral 300 540 Other: Voiding Method Toilet Toilet # Voids 1 4 2 - Exam GENERAL: The patient is alert and oriented x3, not in any acute distress. Well developed, well nourished. HEENT: Pupils are round and equally reacting to light. EOMI. No scleral icterus. No conjunctival pallor. Normocephalic, atraumatic. No pharyngeal erythema. No thyromegaly. CARDIOVASCULAR: S1 and S2 present. No murmurs, rubs, or gallops. PULMONARY: Chest is clear to auscultation, no wheezing or crackles. ABDOMEN: Soft, nontender, nondistended, normoactive bowel sounds. No palpable organomegaly. MUSCULOSKELETAL: No joint swelling or deformity. EXTREMITIES: No cyanosis, clubbing, or pedal edema. NEUROLOGICAL: Gross neurological examination did not reveal any focal deficits. SKIN: No rashes. no petechiae. - Labs CBC & Chem 7: 05/09/19 07:22 05/10/19 07:33 Labs: Abnormal Lab Results - Last 24 Hours (Table) 05/10/19 Range/Units 07:33 Chloride 112 H (98-107) mmol/L Carbon Dioxide 19 L (22-30) mmol/L Glucose 113 H (74-99) mg/dL Calcium 8.2 L (8.4-10.2) mg/dL Microbiology - Last 24 Hours (Table) 05/07/19 10:32 Blood Culture - Preliminary Blood No Growth after 72 hours Assessment and Plan Assessment: Right lower lobe pneumonia Possible gastroenteritis, Mostly reactive to pneumonia Vaginal bleeding of one-day duration after 1 year of vitamin [place] Migraine History of vertigo History of neck pain and radiculopathy Plan: This is a pleasant 48 years old female who presents with pneumonia, and vaginal bleeding. Continue with antibiotics. Hold steroids as patient is not a smoker and has no history of COPD and there is no wheezing on lung exam. Follow-up sputum culture, blood culture. Consult pulmonary service. Labs and medication were reviewed.. Continue same treatment. Continue with sym ptomatic treatment. Resume home medication. Monitor lytes and vitals. DVT and GI prophylaxis. Further recommendations of the clinical course of the patient DVT prophylaxis: Subcutaneous heparin GI Prophylaxis: Pepcid Prognosis is guarded
[2019-05-11] MEDS: guaiFENesin-DM 100-10MG/5ML 10 ML CUP PO SCH ×2 (01:19→07:36)
[2019-05-11 05:00] VITALS: TEMP 97.4
[2019-05-11] MEDS: AZITHROMYCIN 500 MG TAB PO SCH (07:36)
[2019-05-11] MEDS: HEPARIN SODIUM,PORCINE 5,000 UNIT/ML 1 ML VIAL SQ SCH (07:36)
[2019-05-11] MEDS: methylPREDNISolone SOD SUCCI 40 MG/ML 1 ML VIAL IV SCH (07:36)
[2019-05-11] MEDS: FAMOTIDINE 20 MG TAB PO SCH (07:36)
[2019-05-11 07:43] LABS: African American GFR (CKD) >90 (>60 ml/min/1.73 sqM); Anion Gap 8 mmol/L; Blood Urea Nitrogen 12 mg/dL (7-17); Calcium 8.4 mg/dL (8.4-10.2); Carbon Dioxide 22 mmol/L (22-30); Chloride 111 mmol/L (98-107); Glucose 118 mg/dL (74-99); Non-African American GFR(CKD) >90 (>60 ml/min/1.73 sqM); Potassium 4.2 mmol/L (3.5-5.1); Sodium 141 mmol/L (137-145)
[2019-05-11] MEDS: HYDROcodone/APAP 5-325MG 1 EACH TAB PO PRN (07:48)
[2019-05-11] MEDS: ONDANSETRON 4 MG/2 ML VIAL IVP PRN (07:49)
[2019-05-11] MEDS: TROKENDI XR PO SCH (07:49)
[2019-05-11] MEDS: IPRATROPIUM-ALBUTEROL 3 ML NEB INHALATION SCH ×2 (08:48→11:54)
[2019-05-11] MEDS: SODIUM CHLORIDE 0.9% 1,000 ML IV SCH (08:52)
[2019-05-11] MEDS ORDERED: CEFDINIR 300 MG CAP PO SCH (09:00)
[2019-05-11 13:11] VITALS: BP 119/82; PULSE 74; RESP 16
--- NOTE | 2019-05-11 14:14 | P.PN ---
Subjective Progress Note Date: 05/11/19 Principal diagnosis: Right lower lobe pneumonia This is a very pleasant 48-year-old female patient who follows with Dr. Song as her primary care physician. She is a history of migraines, neck pain with cervical radiculopathy, obesity and ADD. She is a lifelong nonsmoker. No history of asthma or emphysema. No inhalers in the past. 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 Approximate 1 week ago she started sneezing felt a tickle in her throat and developed a fever later that night. The next day she is a bit worse this was last Saturday and she was seen in the [facility] emergency room. She was treated with Augmentin. By Saturday she was feeling again worse and had some vomiting and diarrhea she states her flu screen was negative there. They did end up doing a CT angiogram that ruled out pulmonary emboli. She stopped the Augmentin on her own. She progressively got worse and presented here on 05/07/[address] Song's office. She has been slow to progress. Complaints of continued cough and congestion where consulted today for the same. She is seen on the regular medical floor. She is currently resting comfortably in bed. Awake and alert in no acute distress. She states she does get quite short of breath on minimal exertion to the bathroom and back. She is maintaining O2 saturations in the 90s on room air. His x-ray reveals a right lower lobe infiltrate. White count 7.3. Hemoglobin 13.7. Sodium 140. Potassium 4.0. Creatinine 0.68. Blood and negative 1. Influenza screen was negative. HCG was negative. Blood culture reveals no growth. He is currently on bronchodilators, Robitussin, ceftriaxone and azithromycin. The patient is seen today 05/10/2019 in follow-up on the regular medical floor. She is resting quite comfortably in bed. Awake and alert in no acute distress. Maintaining good O2 saturations in the 90s on room air. He's been afebrile. Continues with a loose nonproductive cough. No fever or chills. Blood culture reveals no growth. Sodium 140. Potassium 4.3. Bicarb 19. Creatinine 0.65. She is continued on DuoNeb inhalations, IV Solu-Medrol, antibiotics in the form of Omnicef and azithromycin. The patient is seen today 05/11/2019 in follow-up on the regular medical floor. She is awake and alert in no acute distress. She has a loose nonproductive cough. Maintaining O2 saturations in the mid 90s on room air. She's been afebrile. Blood culture reveals no growth. Sodium 141. Potassium 4.2. Creatinine 0.76. Objective - Vital Signs Vital signs: Vital Signs Temp 97.4 F L 05/11/19 12:44 Pulse 74 05/11/19 12:44 Resp 16 05/11/19 12:44 BP 119/82 05/11/19 12:44 Pulse Ox 95 05/11/19 12:44 Intake & Output 05/10/19 05/11/19 05/11/19 18:59 06:59 18:59 Intake Total 540 700 Balance 540 700 Intake: Oral 540 700 Other: Voiding Method Toilet Toilet # Voids 2 2 # Bowel Movements 0 - Exam GENERAL EXAM: Alert, obese pleasant 48-year-old female patient, on room air comfortable in no apparent distress. HEAD: Normocephalic. EYES: Normal reaction of pupils, equal size. NOSE: Clear with pink turbinates. THROAT: No erythema or exudates. NECK: No masses, no JVD. CHEST: No chest wall deformity. LUNGS: Equal air entry with faint crackles in the right posterior base CVS: S1 and S2 normal with no audible murmur, regular rhythm. ABDOMEN: No hepatosplenomegaly, normal bowel sounds, no guarding or rigidity. SPINE: No scoliosis or deformity SKIN: No rashes CENTRAL NERVOUS SYSTEM: No focal deficits, tone is normal in all 4 extremities. EXTREMITIES: There is no peripheral edema. No clubbing, no cyanosis. Peripheral pulses are intact. - Labs CBC & Chem 7: 05/09/19 07:22 05/11/19 07:06 Labs: Abnormal Lab Results - Last 24 Hours (Table) 05/11/19 Range/Units 07:06 Chloride 111 H (98-107) mmol/L Glucose 118 H (74-99) mg/dL Microbiology - Last 24 Hours (Table) 05/07/19 10:32 Blood Culture - Preliminary Blood No Growth after 96 hours Assessment and Plan Assessment: 1 Dyspnea with cough and congestion secondary to a right lower lobe infiltrate/community-acquired pneumonia, failed outpatient treatment, some postinfectious cough syndrome 2 Recently seen in a another emergency room and a CT angiogram ruled out pulmonary emboli 3 Morbid obesity 4 Lifelong nonsmoker. 5 History of migraines 6 History of ADD Plan The patient was seen and evaluated by Dr. Friedman. She is cleared for discharge from the pulmonary standpoint. Complete course of antibiotics. Complete prednisone taper. Continue albuterol as needed. I, the cosigning physician, performed a history & physical examination of the patient. Lungs sounds with crackles in the right posterior base. Maintaining good O2 saturations in the 90s on room air. I discussed the assessment and plan of care with my nurse practitioner, Shelia Metcalf. I attest to the above note as dictated by her.
--- NOTE | 2019-05-11 14:19 | P.DS ---
Providers Date of admission: 05/07/19 09:37 Expected date of discharge: 05/11/19 Attending physician: Jorje Song Consults: 05/08/19 09:32 Consult Physician Routine Consulting Provider: Kailee Sanchez Consult Reason/Comments: vaginal bleeding following one year of amenorrhea Do you want consulting provider notified?: Yes 05/09/19 13:37 Consult Physician Urgent Consulting Provider: Amanda Brandt Consult Reason/Comments: sob , possible pna Do you want consulting provider notified?: Yes Primary care physician: [facility] Hospital Course: Final Diagnoses: Right lower lobe pneumonia Possible gastroenteritis, Mostly reactive to pneumonia Vaginal bleeding,perimenapausal, further workup outpatient. Migraine History of vertigo History of neck pain and radiculopathy Obesity, BMI 32 Ongoing nicotine dependence Hospital course: This is a 48-year-old female presented with pneumonia, vaginal bleeding and multiple other medical issues. Evaluated by pulmonary, ASSISTIVE TECHNOLOGY TRAINER. Maintained on antibiotics and nebulized bronchodilators. Significant clinical improvement. Cleared by all consults for discharge. Patient is being discharged home in stable condition with guarded prognosis. GENERAL: alert and oriented x3, not in any acute distress. CARDIOVASCULAR: S1 and S2 present. No murmurs, rubs, or gallops. PULMONARY: Chest is clear to auscultation, no wheezing or crackles. ABDOMEN: Soft, nontender, nondistended, normoactive bowel sounds. NEUROLOGICAL: Gross neurological examination did not reveal any focal deficits. The impression and plan of care has been dictated as directed. : I performed a history and examination of this patient, discussed the same with the dictator. I agree with the dictator's note ,documented as a scribe. Any additional findings or plans will be noted. Patient Condition at Discharge: Stable Plan - Discharge Summary New Discharge Prescriptions: New Cefdinir [Omnicef] 300 mg PO BID #10 cap Famotidine [Pepcid] 20 mg PO Q12HR #0 tab predniSONE 10 mg PO DIRECTED #30 tab guaiFENesin-DM 100-10MG/5ML [Robitussin DM] 10 ml PO Q6H cup Albuterol Inhaler [Ventolin Hfa Inhaler] 2 puff INHALATION RT-Q6H PRN #1 inhaler PRN Reason: Shortness Of Breath Continue Topiramate [Trokendi Xr] 100 mg PO DAILY Discharge Medication List Topiramate [Trokendi Xr] 100 mg PO DAILY 05/07/19 [History] Albuterol Inhaler [Ventolin Hfa Inhaler] 2 puff INHALATION RT-Q6H PRN #1 inhaler 05/11/19 [Rx] Cefdinir [Omnicef] 300 mg PO BID #10 cap 05/11/19 [Rx] Famotidine [Pepcid] 20 mg PO Q12HR #0 tab 05/11/19 [Rx] guaiFENesin-DM 100-10MG/5ML [Robitussin DM] 10 ml PO Q6H cup 05/11/19 [Rx] predniSONE 10 mg PO DIRECTED #30 tab 05/11/19 [Rx] Follow up Appointment(s)/Referral(s): Kailee Sanchez MD [STAFF PHYSICIAN] - 2 Weeks (ASSISTIVE TECHNOLOGY TRAINER) Jorje Song MD [Primary Care Provider] - 1 Week Ambulatory/Diagnostic Orders: Complete Blood Count w/diff [LAB.AMB] Time Frame: 3 Days, Location: None Selected Patient Instructions/Handouts: Menopause (GEN), Acute Diarrhea (GEN) Discharge Disposition: HOME SELF-CARE
== END 2019-05-11 13:44 | disposition home or self-care (01) | DRG 195 ==
LOC: 6NMEDSUR 09:37
PROVIDERS: ADMIT Family Medicine; ATTEND Family Medicine
DX: J18.9 Pneumonia, unspecified organism (principal); E66.01 Morbid (severe) obesity due to excess calories; F90.9 Attention-deficit hyperactivity disorder, unspecified type; F17.200 Nicotine dependence, unspecified, uncomplicated; G43.909 Migraine, unspecified, not intractable, without status migrainosus; K52.9 Noninfective gastroenteritis and colitis, unspecified; R42 Dizziness and giddiness; N93.9 Abnormal uterine and vaginal bleeding, unspecified; N95.9 Unspecified menopausal and perimenopausal disorder; N94.3 Premenstrual tension syndrome; Z80.0 Family history of malignant neoplasm of digestive organs; Z82.49 Family history of ischemic heart disease and other diseases of the circulatory system; Z83.3 Family history of diabetes mellitus; Z91.013 Allergy to seafood; Z68.32 Body mass index [BMI] 32.0-32.9, adult
CPT/HCPCS: 36410; 71046; 76937; 80048; 80053; 82550; 82553; 83605; 84484; 84703; 85025; 85379; 87040; 87449; 87502; 93005; 94640; 94760

== ENCOUNTER → 2020-05-10 | Outpatient (CLI) | payer OTHER ==
--- NOTE | 2020-05-10 13:44 | CT ---
EXAMINATION TYPE: CT abdomen pelvis wo con DATE OF EXAM: 05/10/2020 COMPARISON: None INDICATION: diarrhea since complete hysterectomy in January 2020 DLP: 699 mGycm, Automated exposure control for dose reduction was used. CONTRAST: 0 mL of Isovue 300. Study performed without Oral Contrast TECHNIQUE: Axial images were obtained from above the diaphragm to the pubic rami in the axial plane a t 5 mm thick sections. Reconstructed images are reviewed on the computer in the coronal plane. FINDINGS: Limited CT sections are obtained the lung bases. The lung bases are clear. CT ABDOMEN: Liver: Normal Spleen: Normal Pancreas: Normal Adrenal glands: The adrenal glands are normal. Gallbladder: Normal Kidneys: No masses are evident. No hydronephrosis is present. No cysts are present. Punctate renal stone may be at the superior pole left kidney without evidence of obstruction. Series 3 image 48. Aorta: Vascular calcification is within the aorta. Inferior vena cava: Normal. CT PELVIS: Loops of bowel within the abdomen and pelvis are normal. The study is without oral contrast limit ing bowel evaluation. Appendix: Not identified. No suspicious dilated tubular structure or inflammatory changes are evident . Urinary bladder: Normal. Genitourinary structures: Uterus and ovaries are not identified. Osseous structures: No suspicious lytic or sclerotic lesions. IMPRESSIONS: 1. Nonobstructing punctate renal stone superior pole left kidney. 2. Noncontrast imaging through the loops of bowel appear unremarkable.
== END | disposition home or self-care (01) ==
LOC: RADCTMAIN 09:39
PROVIDERS: ATTEND Family Medicine
DX: N20.0 Calculus of kidney (principal)
CPT/HCPCS: 74176

== ENCOUNTER → 2020-06-08 | Outpatient (CLI) | payer OTHER ==
--- NOTE | 2020-06-08 22:40 | MR ---
EXAMINATION TYPE: MR brain wo con DATE OF EXAM: 06/08/2020 COMPARISON: None HISTORY: Sever vertigo, especially after eating. CONTRAST: Performed utilizing 0 mL intravenous Gadavist gadolinium contrast. TECHNIQUE: Multiplanar, multiecho imaging on a 3.0 Marissa magnet is performed through the brain. Stud y is performed within 24 hours of arrival to the hospital. The craniovertebral junction is normal. The pituitary is normal. Diffusion-weighted imaging is performed. No abnormal hyperintensity is present to suggest an acute i ntracranial infarct or acute ischemic change. There are a couple of scattered punctate areas of hyperintensity on T2 and Inversion Recovery weighte d sequences which are non-specific but can be related to microvascular ischemic changes. This is not out of proportion to the patient age. Ventricles and sulci are appropriate for the patient age. Normal vascular flow voids are present. IMPRESSIONS: 1. Nonspecific punctate white matter changes, not out of proportion to the patient age. Differential diagnosis could include microvascular ischemic change and migraine headaches.
--- NOTE | 2020-06-08 22:44 | MR ---
EXAMINATION TYPE: MR iac wo/w con DATE OF EXAM: 06/08/2020 COMPARISON: MRI brain 06/08/2020 HISTORY: Sever vertigo, especially after eating. CONTRAST: Performed utilizing 9.5 mL intravenous Gadavist gadolinium contrast. TECHNIQUE: Multiplanar, multiecho imaging on a 3.0 Marissa magnet is performed through the brain. Atte ntion is paid to the internal auditory canals with thin section imaging. Postcontrast imaging is per formed through the internal auditory canals. FINDINGS: Thin section imaging is performed through the internal auditory canals and cerebellar pontine angles. No cerebellar pontine angle masses are evident. The internal auditory canals appear normal without expansion or erosion. Mastoid air cells appear clear. Postcontrast imaging was performed. No suspicious enhancement is evident within the internal audito ry canals or the included portions of the brain. IMPRESSIONS: 1. Normal internal auditory canals.
== END | disposition home or self-care (01) ==
LOC: RADMRIMAIN 16:03
PROVIDERS: ATTEND Psychiatry & Neurology Neurology
DX: R42 Dizziness and giddiness (principal)
CPT/HCPCS: 70551; 70553; A9585

== ENCOUNTER → 2021-02-02 | Outpatient (CLI) | payer OTHER ==
--- NOTE | 2021-02-02 15:30 | CT ---
EXAMINATION TYPE: CT chest abdomen w con DATE OF EXAM: 02/02/2021 COMPARISON: 05/10/2020 HISTORY: Chest and Abdominal pain CT DLP: 428.70 mGycm Automated exposure control for dose reduction was used. Contrast: Oral and intravenous contrast. Technique: Axial images 5 mm thick sections. Reconstructed images in the coronal plane. FINDINGS: CT chest: The ascending thoracic aorta at the level of main pulmonary artery is 2.8 cm. Main pulmonar y artery bifurcation is 2.2 cm. Portion of the thyroid within the field of view appears unremarkable. No enlarged mediastinal or modesto r adenopathy is evident. Lung white appear clear. CT ABDOMEN: Liver and spleen are of normal density without discrete masses or cysts. The pancreas is unremarkable. Gallbladder appears normal. Adrenal glands normal. Kidneys are normal without mass or c yst or hydronephrosis. Aorta and inferior vena cava are normal. Loops of bowel distended with oral co ntrast. Normal. There are some loops of bowel lacking oral contrast limiting their evaluation. Delayed images obtained through the kidneys are unremarkable. IMPRESSION: 1. NO SUSPICIOUS ACUTE CHANGES CT CHEST AND ABDOMEN.
== END | disposition home or self-care (01) ==
LOC: RADCTMAIN 07:14
PROVIDERS: ATTEND Family Medicine
DX: R07.9 Chest pain, unspecified (principal); R10.9 Unspecified abdominal pain
CPT/HCPCS: 71260; 74160; Q9967